=== PATIENT | male | born 2000 | race Caucasian/White ===

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

== ENCOUNTER 2021-09-22 17:54 | Emergency (ER) | payer OTHER ==
[~2021-09-22] VITALS: Ht 175 cm; Wt 76.0 kg
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
[2021-09-22] MEDS ORDERED: NAPR500T8 PO (20:05)
[2021-09-22] MEDS ORDERED: MUPI22OI2 TP (20:05)
[2021-09-22] MEDS ORDERED: CYCL10TA25 PO (20:05)
[2021-09-22 20:21] VITALS: BP 121/67
== END 2021-09-22 20:23 | disposition home or self-care (01) ==
LOC: EDUNIT# 17:54 → ER 17:57
DX: S50.311A Abrasion of right elbow, initial encounter (principal); S60.511A Abrasion of right hand, initial encounter; S70.211A Abrasion, right hip, initial encounter; S80.211A Abrasion, right knee, initial encounter; T14.8XXA Other injury of unspecified body region, initial encounter; M79.601 Pain in right arm; M79.604 Pain in right leg; V29.9XXA Motorcycle rider (driver) (passenger) injured in unspecified traffic accident, initial encounter; Y92.488 Other paved roadways as the place of occurrence of the external cause
CPT/HCPCS: 70450; 71045; 72125; 73030; 73060; 73080; 73090; 73130; 73552; 73562; 73590

== ENCOUNTER → 2021-10-31 | Outpatient (CLI) | payer OTHER ==
[~2021-10-31] MED LIST: CYCL10TA25 PO; MUPI22OI2 TP; NAPR500T8 PO
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
== END ==
LOC: RAD 10-28 13:25
DX: S83.241A Other tear of medial meniscus, current injury, right knee, initial encounter (principal); V89.2XXA Person injured in unspecified motor-vehicle accident, traffic, initial encounter
CPT/HCPCS: 73721

== ENCOUNTER → 2022-01-28 | Outpatient (RCR) | payer OTHER | END | disposition home or self-care (01) | PROVIDERS: ATTEND Orthopaedic Surgery | DX: M23.611 Other spontaneous disruption of anterior cruciate ligament of right knee (principal) ==

== ENCOUNTER → 2022-02-27 | Outpatient (RCR) | payer OTHER | END | disposition home or self-care (01) | PROVIDERS: ATTEND Orthopaedic Surgery | DX: M23.611 Other spontaneous disruption of anterior cruciate ligament of right knee (principal) ==

== ENCOUNTER 2022-03-27 09:55 | Outpatient (RCR) | payer OTHER | END 2022-03-30 | disposition home or self-care (01) | PROVIDERS: ATTEND Orthopaedic Surgery | DX: M23.611 Other spontaneous disruption of anterior cruciate ligament of right knee (principal) ==

== ENCOUNTER 2022-04-03 12:47 | Outpatient (RCR) | payer OTHER | END 2022-04-03 17:00 | disposition home or self-care (01) | PROVIDERS: ATTEND Orthopaedic Surgery | DX: M23.611 Other spontaneous disruption of anterior cruciate ligament of right knee (principal) ==